=== PATIENT | male | born 1945 | race African-American/Black ===

== ENCOUNTER 2017-04-21 10:03 | Outpatient (CLI) | payer SELFPAY ==
--- NOTE | 2017-04-21 10:55 | SJPRAD ---
This is a test report. POS: [email or web address]
== END 2017-04-21 10:04 | disposition home or self-care (01) ==
LOC: RAD 10:03
PROVIDERS: ATTEND Physician Assistant
DX: Z53.9 Procedure and treatment not carried out, unspecified reason (principal)

== ENCOUNTER 2017-04-21 10:27 | Outpatient (CLI) | payer SELFPAY ==
--- NOTE | 2017-04-21 10:56 | RAD ---
This is a test report POS: [email or web address]
== END 2017-04-21 10:28 | disposition home or self-care (01) ==
LOC: RAD 10:27
PROVIDERS: ATTEND Physician Assistant
DX: Z53.9 Procedure and treatment not carried out, unspecified reason (principal)